=== PATIENT | male | born 1960 | race Caucasian/White ===

== ENCOUNTER 2019-10-30 10:11 | Outpatient (CLI) | payer BC, SELFPAY ==
--- NOTE | ~2019-10-30 | US_ITS ---
EXAMINATION: US venous doppler LE EXAM DATE: 10/30/2019 10:40 INDICATION: Bilateral leg edema, pain. TECHNIQUE: Multiple grayscale, color flow and Doppler images of the lower extremity deep venous syste ms bilaterally were obtained and reviewed. There is no prior study for comparison. FINDINGS: Right side: The right common femoral, femoral and profunda veins demonstrate normal color flow, respi ratory variation, augmentation and compressibility. Compressibility, color flow confirmed within the right popliteal, posterior tibial, peroneal, and greater saphenous veins. Left side: The left common femoral, femoral and profunda veins demonstrate normal color flow, respira tory variation, augmentation and compressibility. Compressibility, color flow confirmed within the l eft popliteal, posterior tibial, peroneal, and greater saphenous veins. IMPRESSION: No lower extremity deep venous thrombosis bilaterally. Reviewed, dictated and finalized at location B. M OVEN OPERATOR
== END 2019-10-30 10:12 | disposition home or self-care (01) ==
PROVIDERS: PCP Family Medicine; Visit Provider Nurse Practitioner Family
DX: R60.9 Edema, unspecified (principal)
CPT/HCPCS: 93970

== ENCOUNTER 2020-02-10 09:11 | Outpatient (CLI) | payer BC, SELFPAY ==
--- NOTE | 2020-02-10 11:00 | NEURO_ITS ---
Patient Number: [id number] Impression: # Complains of right 4th and 5th finger numbness. # Right ulnar neuropathy across the elbow. Ulnar nerve cross innervate APB below the elbow. # Left ulnar neuropathy across the elbow. # Normal needle/EMG exam. Nerve Conduction Studies Anti Sensory Summary Table Stim Site NR Peak (ms) P-T Amp (?V) Site1 Site2 Delta-P (ms) Dist (cm) Shan (m/s) Left Median Anti Sensory (2-3nd Digit) Wrist 3.1 24.8 Wrist 2-3nd Digit 3.1 14.0 45 Wrist 3.2 16.6 Wrist 2-3nd Digit 3.1 14.0 45 Right Median Anti Sensory (2-3nd Digit) Wrist 3.1 23.8 Wrist 2-3nd Digit 3.1 14.0 45 Wrist 3.1 25.4 Wrist 2-3nd Digit 3.1 14.0 45 Left Radial Anti Sensory (Base 1st Digit) Wrist 2.0 7.8 Wrist Base 1st Digit 2.0 0.0 Right Radial Anti Sensory (Base 1st Digit) Wrist 2.3 5.5 Wrist Base 1st Digit 2.3 0.0 Left Ulnar Anti Sensory (5th Digit) Wrist 4.2 45.4 Wrist 5th Digit 4.2 14.0 33 Right Ulnar Anti Sensory (5th Digit) Wrist 4.0 36.4 Wrist 5th Digit 4.0 14.0 35 Motor Summary Table Stim Site NR Onset (ms) O-P Amp (mV) Site1 Site2 Delta-0 (ms) Dist (cm) Shan (m/s) Left Median Motor (Abd Poll Brev) Wrist 4.2 1.1 Elbow Wrist 6.0 33.0 55 Elbow 10.2 1.3 Right Median Motor (Abd Poll Brev) Wrist 3.4 0.5 Elbow Wrist 5.6 31.0 55 Elbow 9.0 0.1 Left Ulnar Motor (Abd Dig Minimi) Wrist 3.0 5.2 A Elbow Wrist 7.0 33.0 47 A Elbow 10.0 2.4 B Elbow Wrist 5.0 26.0 52 B Elbow 8.0 2.6 Right Ulnar Motor (Abd Dig Minimi) Wrist 2.8 4.2 A Elbow Wrist 6.9 33.0 48 A Elbow 9.7 3.3 B Elbow Wrist 5.4 24.0 44 B Elbow 8.2 2.3 F Wave Studies NR F-Lat (ms) L-R F-Lat (ms) Left Median (Mrkrs) (Abd Poll Brev) 30.19 1.00 Right Median (Mrkrs) (Abd Poll Brev) 29.18 1.00 Left Ulnar (Mrkrs) (Abd Dig Min) 34.14 0.25 Right Ulnar (Mrkrs) (Abd Dig Min) 34.40 0.25 EMG Side Muscle Nerve Root Ins Act Fibs Amp Dur Recrt Comment Right 1stDorInt Ulnar C8-T1 Nml Nml Nml Nml Nml Right Ext Indicis Radial (Post Int) C7-8 Nml Nml Nml Nml Nml Right Ext Digitorum Radial (Post Int) C7-8 Nml Nml Nml Nml Nml Right BrachioRad Radial C5-6 Nml Nml Nml Nml Nml Right PronatorTeres Median C6-7 Nml Nml Nml Nml Nml Right Abd Poll Brev Median C8-T1 Nml Nml Nml Nml Nml Left 1stDorInt Ulnar C8-T1 Nml Nml Nml Nml Nml Left Ext Indicis Radial (Post Int) C7-8 Nml Nml Nml Nml Nml Left Ext Digitorum Radial (Post Int) C7-8 Nml Nml Nml Nml Nml Left BrachioRad Radial C5-6 Nml Nml Nml Nml Nml Left PronatorTeres Median C6-7 Nml Nml Nml Nml Nml Left Abd Poll Brev Median C8-T1 Nml Nml Nml Nml Nml Right ABD Dig Min Ulnar C8-T1 Nml Nml Nml Nml Nml Left ABD Dig Min Ulnar C8-T1 Nml Nml Nml Nml Nml MTDD
== END 2020-02-10 09:12 | disposition home or self-care (01) ==
LOC: ANHNEURO 09:14
PROVIDERS: PCP Family Medicine; Visit Provider Nurse Practitioner Family
DX: R20.0 Anesthesia of skin (principal); R20.2 Paresthesia of skin; G56.23 Lesion of ulnar nerve, bilateral upper limbs
CPT/HCPCS: 95886; 95911

== ENCOUNTER 2020-08-12 10:13 | Outpatient (CLI) | payer BC, SELFPAY ==
--- NOTE | 2020-08-12 10:15 | ECG_ITS ---
Measurements Intervals [place] Rate: 63 P: 44 VA: 197 QRS: 13 QRSD: 104 T: 29 QT: 395 QTc: 407 Interpretive Statements SINUS RHYTHM EARLY PRECORDIAL R/S TRANSITION BASELINE ARTIFACT- I, II, III, AVR, AVL, AVF, V1 BORDERLINE ECG Electronically Signed On 08-12-2020 10:31:22 DIRECTOR MICROBIOLOGY by Babak Farmer D.O.
[2020-08-12 10:51] LABS: Anion Gap 8 mmol/L (8-16); Blood Urea Nitrogen 26 mg/dL (9-20); Calcium 8.7 mg/dL (8.4-10.2); Carbon Dioxide 29 mmol/L (22-30); Chloride 101 mmol/L (98-107); Estimated Glomerular Filt Rate > 60; Glucose 105 mg/dL (75-110); Sodium 138 mmol/L (137-145)
== END 2020-08-12 10:14 | disposition home or self-care (01) ==
PROVIDERS: Anesthesiology; PCP Family Medicine; Visit Provider Surgery Plastic and Reconstructive Surgery
DX: Z01.818 Encounter for other preprocedural examination (principal); I10 Essential (primary) hypertension
CPT/HCPCS: 36415; 80048; 93005

== ENCOUNTER 2020-08-14 00:55 | Outpatient (CLI) | payer BC, SELFPAY ==
[2020-08-14 20:15] LABS: SARS-CoV-2 RNA PCR Negative
== END 2020-08-14 00:56 | disposition home or self-care (01) ==
LOC: ANHCOVIDDT 00:55
PROVIDERS: PCP Family Medicine; Visit Provider Surgery Plastic and Reconstructive Surgery
DX: Z01.818 Encounter for other preprocedural examination (principal); Z20.828 Contact with and (suspected) exposure to other viral communicable diseases
CPT/HCPCS: 87635; C9803; U0003

== ENCOUNTER 2020-08-17 01:10 | Day surgery (SDC) | payer BC, SELFPAY ==
[2020-08-09 15:20] VITALS: BMI 35.9
[2020-08-17] VITALS (8 sets, daily range): BP systolic 145–188; BP diastolic 75–96; PULSE 63–69; RESP 10–18; TEMP 36.4–36.6; O2SAT 97–100; BMI 37.4
[2020-08-17] MEDS: LACTATED RINGERS 1,000 ML 30 ML IV CONT ×2 (13:00→16:49)
--- NOTE | 2020-08-17 13:40 | P.PNAN_ITS ---
Anes - Initial Pre Proc Eval Procedure: Operation Date: 08/17/20 14:00 Proposed Procedures p Bilateral Cubital Tunnel Release - Jed Pyle MD Date/Time: 08/17/20 13:40 Surgeon: Jed Pyle MD Pre Op Diagnosis: bilat cubital tunnel syndrome Patient Data Age: 60 Gender: M Height: 1.88 m Weight: 132.2 kg Last Vital Signs Temp 36.6 C 08/17/20 12:45 Pulse 69 08/17/20 12:45 Resp 18 08/17/20 12:45 BP 145/79 H 08/17/20 12:45 Pulse Ox 100 08/17/20 12:45 Allergies Allergy/AdvReac Type Severity Reaction Status Date / Time No Known Allergies Allergy Unknown Verified 08/17/20 12:14 Home Medications Medication Instructions Recorded Confirmed Type enalapril 10 1 tablet PO DAILY #90 tablet 04/12/20 08/17/20 Rx mg-hydrochlorothiazide 25 mg tablet cholecalciferol (vitamin D3) 50 50 mcg PO DAILY 07/14/20 08/17/20 History mcg (2,000 unit) capsule omega-3 fatty acids 1,000 mg 1,000 mg PO DAILY 07/14/20 08/17/20 History capsule rosuvastatin [Crestor] 10 mg PO QAM 08/09/20 08/17/20 History Patient hx anesthesia problems: none Family hx anesthesia problems: none [facility] Past Medical History Medical History (Updated 08/16/20 @ 12:34 by Domenic Hussein DO) Essential (primary) hypertension Mixed hyperlipidemia Spinal stenosis, lumbosacral region Surgical History Surgical History History of back surgery 11/2018 History of hip replacement left hip 03/01/20 Family History Family History Father Family history of elevated blood lipids Mother Family history of elevated blood lipids Sibling Family history of elevated blood lipids Family history of diabetes mellitus in first degree relative Social History Social History Smoking packs per day: 1 Smoking cigarettes per day: 20.0 Years smoked: 35 Smoking pack-years: 35.00 Smoking status: Former smoker Tobacco type: cigarettes Smoking end date: 09/03/16 Alcohol intake: current Alcohol use details: ONE DRINK PER MONTH Substance use: never Substance use type: does not use Living arrangements: with family Spiritual care concerns: No Anes - Eval Final PreProcedure Day of Procedure 08/17/20 13:40 Patient weight: obese Heart: regular rate and rhythm Lungs: clear to auscultation and normal air movement Airway: Mallampati scale class II Neurological: alert and oriented Last oral intake: >/= 8 hours ASA classification: III Emergent: no Anesthetic plan: proceed Anesthesia type and monitoring: general GIVS and standard monitoring Informed Consent: The patient's anesthetic plan and its attendant risks and benefits were discussed with the patient/family/POA. Questions were solicited and answers provided to the satisfaction of the patient/family/POA.
--- NOTE | 2020-08-17 14:09 | WPDHPUPDATE1 ---
History and Physical Update Update Date/Time: 08/17/20 14:09 History and Physical has been reviewed, including an updated exam of the patient. There are NO changes in the patient's condition. Risks, benefits, and alternatives have been discussed and questions answered. Patient agrees to proceed with procedure.
--- NOTE | 2020-08-17 14:33 | PM.PROC ---
Procedure Note - Detailed Date of procedure: 08/17/20 Pre-op diagnosis: bilat cubital tunnel syndrome Post-op diagnosis: same Procedure performed: Bilateral open cubital tunnel release Description of procedure: Risks, benefits, alternatives were discussed in extensive detail. I wanted him to be very realistic about the risks involved as well as expectations. He has numbness at all times at specially on the left side and he understands this may not resolve her can even worsen. All questions answered to his satisfaction today and consent obtained. Patient was marked in the preoperative holding area with his verification. He was taken to the operating room placed supine on the operating room table. Anesthesia provided by anesthesiology and prepped and draped in a standard sterile fashion. Surgical time-out was taken. 1% lidocaine and 0.25% Marcaine with epinephrine was used anesthetize locally. Both arms proceed in the same manner. Esmarch was used to exsanguinate the arm. A tourniquet inflated to 250 mmHg. A 15 blade used to make an incision just proximal to the elbow and dissection was continued down until the ulnar nerve was identified. Dissection was continued proximally and distally until completely released. There was no evidence of neurovascular tendon injury. Care was taken to protect any crossing nerves. Tourniquet was released and I verified strict hemostasis. This was closed with 3-0 Monocryl followed by running subcuticular 4-0 Monocryl and tissue glue. Dressings were placed. He was awoke and taken to the PACU without difficulty. All instrument sponge counts were correct at the end of the case. Anesthesia: GLMA Surgeon: Jed Pyle MD Estimated blood loss (mL): 10 Drains: No Packing: No Pathology: none sent Complications: No immediate complications Condition: stable Disposition: PACU Findings: Impingement noted right side at elbow and proximally. left at elbow and distal.
[2020-08-17] MEDS: ceFAZolin 3 GM/D5W 100 ML 100 ML IVPB (14:57)
[2020-08-17] MEDS: LIDO 1%/EPINEPHRINE 1:100,000 20 ML VIAL INFILTRATE (15:24)
--- NOTE | 2020-08-17 16:02 | SUR.OPER ---
RIGHT ARM DRESSINGS ON 1601.
[2020-08-17] MEDS: hydrALAZINE HCL 20 MG/ML VIAL 5 MG IV PUSH (17:24)
== END 2020-08-17 18:45 | disposition home or self-care (01) ==
PROVIDERS: PCP Family Medicine; Visit Provider Surgery Plastic and Reconstructive Surgery
PROC: (CPT 64718; principal; 2020-08-17 14:00)
DX: G56.23 Lesion of ulnar nerve, bilateral upper limbs (principal); I10 Essential (primary) hypertension; E78.2 Mixed hyperlipidemia; M48.07 Spinal stenosis, lumbosacral region; Z87.891 Personal history of nicotine dependence; E66.9 Obesity, unspecified; Z68.37 Body mass index [BMI] 37.0-37.9, adult
CPT/HCPCS: 64718; J0360; J0690; J1100; J2250; J2405; J2704; J3010; J7120

== ENCOUNTER 2021-05-23 00:37 | Day surgery (SDC) | payer BC, SELFPAY ==
[2021-05-11 15:01] VITALS: BMI 36.6
--- NOTE | 2021-05-20 10:42 | PM.HPGS ---
History of Present Illness History of Present Illness Consent: Risks, benefits, and alternatives have been discussed and questions answered. Patient agrees to proceed with procedure. Chief complaint: neoplasm screening Narrative: Tim Howell is a 61 year old male There for colon cancer screening. His last colonoscopy was 10 years ago Review of Systems Review of Systems: All systems reviewed & are unremarkable except as noted in HPI and below PMFSH Past Medical History Medical History BMI 37.0-37.9, adult Essential (primary) hypertension Mixed hyperlipidemia Spinal stenosis, lumbosacral region Surgical History Surgical History History of back surgery 11/2018 History of hip replacement left hip 03/01/20 Family History Family History Father Family history of elevated blood lipids Mother Family history of elevated blood lipids Sibling Family history of elevated blood lipids Family history of diabetes mellitus in first degree relative Social History Social History Smoking packs per day: 1 Smoking cigarettes per day: 20.0 Years smoked: 35 Smoking pack-years: 35.00 Smoking status: Former smoker Tobacco type: cigarettes Smoking end date: 09/03/17 Alcohol intake: current Alcohol use details: rarely Substance use: never Substance use type: does not use Living arrangements: with family Gender identity (if verbalized by the patient): Male Sexual Orientation (if Verbalized by the Patient): Straight or Heterosexual Spiritual care concerns: No Agree to blood products: Yes Meds Home Medications and Allergies Home Medications Medication Instructions Recorded Confirmed Type cholecalciferol (vitamin D3) 50 50 mcg PO DAILY 07/14/20 05/11/21 History mcg (2,000 unit) capsule omega-3 fatty acids 1,000 mg 1,000 mg PO DAILY 07/14/20 05/11/21 History capsule enalapril 10 1 tablet PO DAILY #90 tablet 01/10/21 05/11/21 Rx mg-hydrochlorothiazide 25 mg tablet rosuvastatin 20 mg tablet See Rx Instructions .ROUTE 01/28/21 05/11/21 Rx .COMPLEX #30 tablet Allergies Allergy/AdvReac Type Severity Reaction Status Date / Time No Known Allergies Allergy Unknown Verified 05/23/21 06:22 Exam Resp: Auscultation: clear to auscultation bilaterally Cardio: Rate: regular rate Rhythm: regular rhythm GI: GI Palp: Yes Soft to palpation and No Tenderness to palpation present (GI) Assessment and Plan Assessment and plan (1) Screening for malignant neoplasm of colon: Code(s): Z12.11 - Encounter for screening for malignant neoplasm of colon Status: Acute Assessment and Plan: Colonoscopy with possible biopsy or polypectomy or cautery or injection of substances.
[2021-05-23 06:23] VITALS: BMI 33.5
[2021-05-23 06:24] VITALS: BP 145/75; PULSE 66; RESP 18; TEMP 36.3; O2SAT 99
[2021-05-23] MEDS: LACTATED RINGERS 1,000 ML 150 ML IV CONT (06:37)
--- NOTE | 2021-05-23 07:14 | WPDANESEPPF ---
Anes - Initial Pre Proc Eval Procedure: Operation Date: 05/23/21 07:30 Proposed Procedures p Screening Colonoscopy - Deepak Vasquez MD Date/Time: 05/23/21 07:14 Surgeon: Deepak Vasquez MD Pre Op Diagnosis: neoplasm screening Patient Data Age: 61 Gender: M Height: 1.88 m Weight: 118.7 kg Last Vital Signs Temp 97.4 F L 05/23/21 06:24 Pulse 66 05/23/21 06:24 Resp 18 05/23/21 06:24 BP 145/75 H 05/23/21 06:24 Pulse Ox 99 05/23/21 06:24 Allergies Allergy/AdvReac Type Severity Reaction Status Date / Time No Known Allergies Allergy Unknown Verified 05/23/21 06:22 Home Medications Medication Instructions Recorded Confirmed Type cholecalciferol (vitamin D3) 50 50 mcg PO DAILY 07/14/20 05/11/21 History mcg (2,000 unit) capsule omega-3 fatty acids 1,000 mg 1,000 mg PO DAILY 07/14/20 05/11/21 History capsule enalapril 10 1 tablet PO DAILY #90 tablet 01/10/21 05/11/21 Rx mg-hydrochlorothiazide 25 mg tablet rosuvastatin 20 mg tablet See Rx Instructions .ROUTE 01/28/21 05/11/21 Rx .COMPLEX #30 tablet Patient hx anesthesia problems: none Family hx anesthesia problems: none PMFSH Past Medical History Medical History BMI 37.0-37.9, adult Essential (primary) hypertension Mixed hyperlipidemia Spinal stenosis, lumbosacral region Surgical History Surgical History History of back surgery 11/2018 History of hip replacement left hip 03/01/20 Family History Family History Father Family history of elevated blood lipids Mother Family history of elevated blood lipids Sibling Family history of elevated blood lipids Family history of diabetes mellitus in first degree relative Social History Social History Smoking packs per day: 1 Smoking cigarettes per day: 20.0 Years smoked: 35 Smoking pack-years: 35.00 Smoking status: Former smoker Tobacco type: cigarettes Smoking end date: 09/03/17 Alcohol intake: current Alcohol use details: rarely Substance use: never Substance use type: does not use Living arrangements: with family Gender identity (if verbalized by the patient): Male Sexual Orientation (if Verbalized by the Patient): Straight or Heterosexual Spiritual care concerns: No Agree to blood products: Yes Anes - Eval Final PreProcedure Day of Procedure 05/23/21 07:14 Patient weight: obese Heart: regular rate and rhythm Lungs: clear to auscultation Airway: Mallampati scale class II Neurological: alert and oriented Last oral intake: >/= 8 hours ASA classification: III Emergent: no Anesthetic plan: proceed Anesthesia type and monitoring: general GIVS and standard monitoring Informed Consent: The patient's anesthetic plan and its attendant risks and benefits were discussed with the patient/family/POA. Questions were solicited and answers provided to the satisfaction of the patient/family/POA.
[2021-05-23 07:40] VITALS: BP 123/84; PULSE 66; RESP 20; O2SAT 100
[2021-05-23 07:50] VITALS: BP 124/84; PULSE 63; RESP 17; O2SAT 100
[2021-05-23 08:00] VITALS: BP 134/86; PULSE 63; RESP 18; O2SAT 100
== END 2021-05-23 08:11 | disposition home or self-care (01) ==
PROVIDERS: PCP Family Medicine; Visit Provider Internal Medicine Gastroenterology
PROC: 0DJD8ZZ Inspection of Lower Intestinal Tract, Via Natural or Artificial Opening Endoscopic (ICD-10-PCS; CPT 45378; principal; 2021-05-23 07:30)
DX: Z12.11 Encounter for screening for malignant neoplasm of colon (principal); I10 Essential (primary) hypertension; E78.2 Mixed hyperlipidemia; Z87.891 Personal history of nicotine dependence; E66.9 Obesity, unspecified; Z68.33 Body mass index [BMI] 33.0-33.9, adult
CPT/HCPCS: 45378; J7120

== ENCOUNTER 2023-11-27 15:30 | Outpatient (RCR) | payer OTHER, SELFPAY | END 2023-11-30 12:06 | disposition home or self-care (01) | LOC: ANHDMC 15:30 | PROVIDERS: PCP Family Medicine; Visit Provider Family Medicine | DX: E11.9 Type 2 diabetes mellitus without complications (principal); Z71.89 Other specified counseling | CPT/HCPCS: G0108 ==

== ENCOUNTER 2025-08-11 15:29 | Outpatient (CLI) | payer OTHER, SELFPAY ==
--- NOTE | ~2025-08-11 | US_ITS ---
EXAMINATION: US thyroid DATE: 08/11/2025 15:59 INDICATION: Abnormal thyroid function. TECHNIQUE: Multiple ultrasound images of the thyroid were obtained. COMPARISON: None available FINDINGS: The right thyroid lobe measures 5.7 x 2 x 1.7 cm cm. The left thyroid lobe measures 6.2 x 2 x 1.8 cm. Mild diffuse enlargement of thyroid gland. Normal echotexture. No dominant focal thyroid nodule IMPRESSION: 1. Mild diffuse enlargement of thyroid gland without focal nodules. Reviewed, dictated and finalized at location T. [employer]
--- OUTSIDE RECORDS SUMMARY | 2025-08-11 17:58 | XMS_ITS | Clinical Summary ---
Author Organization [facility] Address [address] [place] [address] Phone Care Team Providers Care Agency Operator Name Role Phone Tres Mazariegos MD Primary Care Provider [phone] Allergies No known active allergies Medications enalapril-hydro CHLOROthiazide (VASERETIC) 10-25 mg Tablet 9 Active rosuvastatin (CRESTOR) 20 mg tablet Take 20 mg by mouth late in the day. 0 Active [place]-3 Fatty Acids 500 mg Capsule Take 500 mg by mouth. Active cholecalciferol , Vitamin D3, 50 mcg (2,000 unit) Tablet Take 2,000 Units by mouth daily. Active aspirin (ECOTRIN EC) 325 mg Tablet, Delayed Release (E.C.) Take 1 Tablet (325 mg) by mouth daily. 30 Tablet 03/02/2020 9:42 AM CDT 0 Active amoxicillin (AMOXIL) 500 mg Tablet Take 4 tablets 1 hour prior to procedure 4 Tablet 3 0 Active Active Problems Problem Noted Date Diagnosed Date Benign essential HTN Primary osteoarthritis of left hip Hyperlipidemia Immunizations Immunization Administration Dates Next Due (ADACEL/BOOSTRIX)(10 YR UP) TDAP VACCINE, 0.5ML, IM 02/01/2018 INFLUENZA VACCINE QUADRIVALENT 3 YR UP PF IM INFLUENZA VACCINE QUADRIVALENT 6 MOS UP PF IM Influenza Vaccine Tri Split 4+ Im 06/17/2018 Social History Tobacco Use Types Packs/Day Years Used Date Smoking Tobacco: Former Cigarettes 0 Q uit: 12/01/2017 Smokeless Tobacco: Never Alcohol Use Standard Drinks/Week Comments Yes 0 (1 standard drink = 0.6 oz pur e alcohol) social Sex and Gender Information Value Date Recorded Sex Assigned at Not on file Legal Sex Male 1:35 PM CDT Gender Identity Not on file Sexual Orientation Not on file Last Filed Vital Signs Vital Sign Reading Time Taken Comments Blood Pressure 161/80 07/09/2020 12:15 PM METAL RIVET MACHINE OPERATOR Pulse 85 07/09/2020 12:15 PM METAL RIVET MACHINE OPERATOR Temperature 37 C (98.6 F) 07/09/2020 12:15 PM METAL RIVET MACHINE OPERATOR Respiratory Rate 15 07/09/2020 12:15 PM METAL RIVET MACHINE OPERATOR Oxygen Saturation 99% 07/09/2020 12:15 PM METAL RIVET MACHINE OPERATOR Inhaled Oxygen Concentration - - Weight 127 kg (280 lb) 02/23/2021 10:57 AM CDT Height 188 cm (6' 2) 02/23/2021 10:57 AM CDT Body Mass Index 35.95 02/23/2021 10:57 AM CDT Plan of Treatment Health Maintenance Due Date Last Done Comments COLORECTAL SCREENING 02/14/2005 Colorectal Cancer Screening 02/14/2005 FIT-DNA Q 3 years 02/14/2005 FIT/FOBT Q 1 year 02/14/2005 Flex Sig/CT Colonography Q 5 years 02/14/2005 PNEUMOCOCCAL VACCINE 50+ YEA RS (1 of 1 - PCV) 02/14/2010 ZOSTER VACCINE (1 of 2) 02/14/2010 INFLUENZA VACCINE (#1) 2025 0, 06/17/2018, 06/17/2018, Additional history exists DTAP/TDAP/TD VACCINES (2 - T d or Tdap) 02/02/2028 02/01/2018 RSV VACCINE (60+ or ) (1 - 1-dose 75+ series) 02/14/2035 Medical Devices Implanted Type Area Lumber Puller Device Identifier Shelf Expiration Date Model / Serial / Lot Liner R3 Xlpe 20d [id number] - [id number] Implanted:Qty : 1 on 03/01/2020 by Fredrick Dos Santos MD at [facility] Hip Left: Hip [employer] [id number] 10/11/2029 [id number] / / [id number] Shell R3 3hl 56mm 1319-2536 - [id number] Implanted:Qty : 1 on 03/01/2020 by Fredrick Dos Santos MD at [facility] Hip Left: Hip [employer] [id number] 10/31/2029 [id number] / / [id number] Head Fem Oxnm Mdlr 40mm 1067-9994 - [id number] Implanted:Qty : 1 on 03/01/2020 by Fredrick Dos Santos MD at [facility] Hip Left: Hip [employer] [id number] 01/06/2030 [id number] / / [id number] [employer] Standard With Ti/Alvarez Size 6 Cone 08/16 Implanted:Qty : 1 on 03/01/2020 by Fredrick Dos Santos MD at [facility] Hip Left: Hip [employer] [id number] 05/28/2026 [id number] / / [id number] Sleeve Modular 08/16 Tpr 1402-2376 - [id number] Implanted:Qty : 1 on 03/01/2020 by Fredrick Dos Santos MD at [facility] Hip Left: Hip [employer] [id number] 03/20/2029 [id number] / / [id number] Screw Sphrcl Hd 6.5x35mm 1856-7681 - [id number] Implanted:Qty : 1 on 03/01/2020 by Fredrick Dos Santos MD at [facility] Screw Left: Hip [employer] [id number] 07/21/2029 [id number] / / [id number] Screw Sphrcl Hd 6.5x20mm [id number] - [id number] Implanted:Qty : 1 on 03/01/2020 by Fredrick Dos Santos MD at [facility] Screw Left: Hip [employer] [id number] 10/17/2029 [id number] / / [id number] Insurance [facility] BLUE ACCESS CHOICE RX [facility] Commercial Advance Directives For more information, please contact: [phone] * Full Code (Latest Code Status on File) Date Activated Date Inactivated Comments 03/01/2020 10:13 AM 03/02/2020 6:23 PM * Full Code Date Activated Date Inactivated Comments 03/01/2020 5:16 AM 03/01/2020 10:13 AM Care Teams Agency Operator Relationship Specialty Start Date End Date Tres Mazariegos MD [address] [place] [address] PCP - General Family Practice 04/02/19
--- OUTSIDE RECORDS SUMMARY | 2025-08-11 17:58 | XMS_ITS | Clinical Summary ---
Author Organization [facility] [employer] Address [address] [place] [address] Care Team Providers Care Quality Control Technician Name Role Phone Tres Mazariegos MD Primary Care Provider [phone] Source Comments [facility] [employer],non-owned Affiliates and Associated Physician Practices is amultiple site organization consisting of ambulatory clinics and hospital sitesin [place], [place], [place] and [place]. This disclosure is being madepursuant to the Care Everywhere program and may not contain all information available regarding this patient. Last updated 18.[facility] [employer] Allergies No known active allergies Medications * Be aware that medications may not be up to date on this document. Alwaysverify current medications with the patient. diclofenac sodium EC (VOLTAREN) 75 MG tablet Take 1 Tab by mouth 3 times daily 90 Tab 11 05/03/20 15 Active amLODIPine (NORVASC) 5 MG tablet Take 5 mg by mouth once daily Active naproxen EC (NAPROXEN DR) 500 MG TBEC tablet Take 500 mg by mouth 2 times daily Active enalapril - hydrochlorothiazide (VASERETIC) 10-25 MG tablet Take 1 Tab by mouth once daily Active niacin CR (NIASPAN) 1000 MG tablet Take 1,000 mg by mouth at bedtime Active lovastatin (MEVACOR) 20 MG tablet Take 20 mg by mouth at bedtime Active hydrochlorothiazide (HYDRODIURIL) 25 MG tablet Take 25 mg by mouth once daily Active Social History Tobacco Use Types Packs/Day Years Used Date Smoking Tobacco: Every Day Cigarettes 1 35 Smokeless Tobacco: Never Alcohol Use Standard Drinks/Week Comments Yes 0.8 (1 standard drink = 0.6 oz p ure alcohol) Sex and Gender Information Value Date Recorded Sex Assigned at Not on file Legal Sex Male 5:52 AM [employer] Gender Identity Not on file Sexual Orientation Not on file 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 Not on file Not on file Last Filed Vital Signs Vital Sign Reading Time Taken Comments Blood Pressure - - Pulse - - Temperature - - Respiratory Rate - - Oxygen Saturation - - Inhaled Oxygen Concentration - - Weight 122.5 kg (270 lb) 05/03/2015 10:24 AM CDT Height 188 cm (6' 2) 05/03/2015 10:24 AM CDT Body Mass Index 34.67 05/03/2015 10:24 AM CDT Plan of Treatment Health Maintenance Due Date Last Done Comments COLOGUARD (AGES 45-75) - COL ON CA SCREENING 1960 COLON MONITORING 1960 COLONOSCOPY - COLON CA SCREENING 1960 CT COLONOGRAPHY - COLON CA SCREENING 1960 Colorectal Cancer Screening 1960 FIT - COLON CA SCREENING 1960 FLEX SIG - COLON CA SCREENING 1960 HIV SCREENING 02/14/1975 HEPATITIS C SCREENING 02/10/1978 DTAP/TDAP/TD VACCINES (1 - Tdap) 02/14/1979 PNEUMOCOCCAL VACCINE 50+ (1 of 1 - PCV) 02/14/2010 ZOSTER VACCINE (1 of 2) 02/14/2010 DEPRESSION SCREENING 09/03/2024 AAA SCREENING 02/14/2025 COVID-19 VACCINE (1 - 2024-2 6 season) 2025 INFLUENZA VACCINE (#1) 2025 Respiratory Syncytial Virus (RSV) Vaccine Pt: or over 60 yrs (1 - 1-dose 75+ series) 02/14/2035 HEPATITIS B VACCINE Aged Out No longe r eligible based on patient's age to complete this topic HIB VACCINE Aged Out No longer eligi ble based on patient's age to complete this topic HPV VACCINE Aged Out No longer eligi ble based on patient's age to complete this topic MENINGOCOCCAL (Group B) VACC INE SHARED DECISION-MAKING Aged Out No longer eligibl e based on patient's age to complete this topic MENINGOCOCCAL GROUPS A/C/Y/W VACCINE Aged Out No longer eligible b ased on patient's age to complete this topic Insurance [facility] Care Teams Quality Control Technician Relationship Specialty Start Date End Date Tres Mazariegos MD [address] [place] [address] PCP - General Family Medicine 05/03/15
== END 2025-08-11 15:30 | disposition home or self-care (01) ==
PROVIDERS: PCP Family Medicine; Visit Provider Nurse Practitioner Family
DX: E04.9 Nontoxic goiter, unspecified (principal); R79.89 Other specified abnormal findings of blood chemistry
CPT/HCPCS: 76536